=== PATIENT | female | born 1980 | race Two or more races ===

== ENCOUNTER 2023-07-21 14:53 | Emergency (ER) | payer BC ==
[~2023-07-21] VITALS: Ht 160 cm; Wt 83.0 kg
[2023-07-21 15:42] LABS: Urine Bacteria FEW /hpf (None Seen); Urine Blood Negative /uL (Negative); Urine Clarity HAZY (Clear); Urine Color Yellow (Yellow); Urine Mucus FEW (None Seen); Urine Protein, UAD 1+ (Negative); Urine Specific Gravity 1.028 (1.001-1.035); Urine WBC 6 /hpf (0 - 5)
[2023-07-21] MEDS ORDERED: AMOX875T4 PO (19:55)
[2023-07-21] MEDS ORDERED: cefTRIAXone SOD 1,000 MG VL IM ONE (20:00)
[2023-07-21] MEDS ORDERED: PROMETHAZINE HCL 25 MG/ML 1ML IM ONE (20:15)
[2023-07-21] MEDS ORDERED: SULFAMETH-TRIMETH 80/16MG-ML 10 ML in D5W 5% 250 ML IV ONE (20:30)
[2023-07-21] MEDS ORDERED: PROMETHAZINE HCL 25 MG/ML 1ML ONE (20:53)
[2023-07-21] MEDS ORDERED: cefTRIAXone SOD 1,000 MG VL ONE (20:54)
[2023-07-21] MEDS ORDERED: SULFAMETH-TRIMETH 800-160mg/10ml (80-16MG/ML) 10 ML VIAL IV ONE (21:04)
[2023-07-21] MEDS ORDERED: TETANUS-DIPTH-ACEL PERTUSSIS 0.5ML SYR Tdap IM ONE (21:07)
[2023-07-21 22:28] VITALS: BP 118/70; PULSE 88; RESP 18; TEMP 97.9; O2SAT 95
== END 2023-07-21 23:32 | disposition home or self-care (01) ==
LOC: ER 14:53
DX: N39.0 Urinary tract infection, site not specified (principal); F17.210 Nicotine dependence, cigarettes, uncomplicated; Z88.8 Allergy status to other drugs, medicaments and biological substances; Z90.49 Acquired absence of other specified parts of digestive tract; Z90.89 Acquired absence of other organs
CPT/HCPCS: 81001; 90715; 96365; 96366; 96372; 99284; J2550; J3490; J7060; J0696